=== PATIENT | male | born 1980 | race Caucasian/White ===

== ENCOUNTER 2017-12-22 16:31 | Emergency (ER) | payer SELFPAY ==
[~2017-12-22] VITALS: Ht 180.3 cm; Wt 100.0 kg
[2017-12-22 16:35] VITALS: Ht 180.3 cm; Wt 100.0 kg
[2017-12-22] MEDS ORDERED: PRINIVIL20 MG PO (16:40)
[2017-12-22] MEDS ORDERED: MECLIZINE HCL25 MG PO (16:40)
[2017-12-22] MEDS ORDERED: MEDROL DOSE PACK4 MG PO (17:42)
[2017-12-22] MEDS ORDERED: AMOXICILLIN500 M1 PO (17:42)
[2017-12-22 19:02] VITALS: BP 161/111
== END 2017-12-22 18:35 | disposition home or self-care (01) ==
LOC: D.ER 16:31
DX: H66.91 Otitis media, unspecified, right ear (principal); R11.0 Nausea; I10 Essential (primary) hypertension

== ENCOUNTER 2019-01-19 20:02 | Inpatient (IN) | payer SELFPAY ==
[~2019-01-19] VITALS: Ht 180.3 cm; Wt 78.0 kg
[~2019-01-19 20:02] MED LIST: AMOXICILLIN500 M1 PO; MECLIZINE HCL25 MG PO; MEDROL DOSE PACK4 MG PO; PRINIVIL20 MG PO
[2019-01-19 20:32] LABS: BASOPHILS 0.2 % (0-2); EOSINOPHILS 0.8 % (0-7); HEMATOCRIT 47.8 % (42.0-54.0); HEMOGLOBIN 16.9 g/dL (13.5-17.5); IMMATURE GRANULOCYTES 0.2 % (0-5); LYMPHOCYTES 25.1 % (15-50); MCH 31.9 pg (26.0-34.0); MCHC 35.4 g/dL (31.0-37.0); MCV 90.4 fL (80.0-100.0); MONOCYTES 5.5 % (2-11); NEUTROPHILS 68.2 % (40-80); PLATELET COUNT 227 10x3/uL (130-400); RBC 5.29 10x6/uL (4.20-6.10); WBC 13.3 10x3/uL (4.8-10.8)
[2019-01-19 20:52] LABS: ALBUMIN 4.5 g/dL (3.4-5.0); ALKALINE PHOSPHATASE 98 U/L (46-116); ALT (SGPT) 26 U/L (10-68); CALC OSMOLALITY 287 mosm/kg (275-300); CALCIUM 9.7 mg/dL (8.5-10.1); CARBON DIOXIDE 27.4 mmol/L (21.0-32.0); CHLORIDE - SERUM 107 mmol/L (98-107); CREATININE - SERUM 1.3 mg/dL (0.6-1.3); GLUCOSE 109 mg/dL (74-106); POTASSIUM - SERUM 4.4 mmol/L (3.5-5.1); PROTEIN - SERUM 8.8 g/dL (6.4-8.2); SODIUM 144 mmol/L (136-145); UREA NITROGEN 13 mg/dL (7-18); eGFR NON AFRICAN AMERICAN 65 mL/min (90-120)
[2019-01-19 20:56] LABS: AMYLASE - SERUM 49 U/L (25-115); LIPASE 83 U/L (73-393); TROPONIN-I < 0.017 ng/mL (0.000-0.060)
[2019-01-19 21:18] LABS: APPEARANCE CLEAR (CLEAR); COLOR YELLOW (YELLOW); GLUCOSE NEGATIVE (NEGATIVE); NITRITE NEGATIVE (NEGATIVE); PROTEIN TRACE mg/dL (NEGATIVE); SPECIFIC GRAVITY 1.015 (1.005-1.020)
[2019-01-19 21:19] LABS: BILIRUBIN NEGATIVE (NEGATIVE); KETONE NEGATIVE (NEGATIVE); UROBILINOGEN NORMAL (NORMAL)
--- NOTE | 2019-01-19 21:49 | NUR ---
PT SIPPING CONTRAST. NO N/V NOTED.
--- NOTE | 2019-01-19 22:31 | NUR ---
BACK FROM CT.
[2019-01-19 23:38] VITALS: BP 156/85
--- NOTE | 2019-01-19 23:50 | NUR ---
RECEIVED PT TO FLOOR FROM ER VIA WHEELCHAIR. PT SPEAKS FRENCH, LIMITED BHUTANESE. PT HAD ZOFRAN IN ER, NO NAUSEA SINCE THEN. HISTORY AND MEDS REVIEWED. IV FLUIDS INFUSING. PT REFUSED TELEMETRY. NO OTHER NEEDS. WILL REASSESS AND CONTINUE TO MONITOR. CALL LIGHT IN REACH.
[2019-01-20 01:36] VITALS: BP 147/94; BMI 24.0
[2019-01-20 05:01] VITALS: BP 118/75
[2019-01-20 06:08] LABS: BASOPHILS 0.3 % (0-2); HEMATOCRIT 40.2 % (42.0-54.0); IMMATURE GRANULOCYTES 0.1 % (0-5); LYMPHOCYTES 40.5 % (15-50); MCH 31.3 pg (26.0-34.0); MCHC 34.8 g/dL (31.0-37.0); MCV 89.9 fL (80.0-100.0); MEAN PLATELET VOLUME 11.1 fL (7.4-10.4); MONOCYTES 6.8 % (2-11); NEUTROPHILS 51.3 % (40-80); PLATELET COUNT 192 10x3/uL (130-400); RBC 4.47 10x6/uL (4.20-6.10); RDW 13.3 % (11.5-14.5)
[2019-01-20 06:19] LABS: WBC 7.9 10x3/uL (4.8-10.8)
[2019-01-20 06:43] LABS: CALC OSMOLALITY 281 mosm/kg (275-300); CALCIUM 8.1 mg/dL (8.5-10.1); CARBON DIOXIDE 23.9 mmol/L (21.0-32.0); CHLORIDE - SERUM 108 mmol/L (98-107); GLUCOSE 96 mg/dL (74-106); MAGNESIUM - SERUM 2.1 mg/dL (1.8-2.4); PHOSPHOROUS 3.8 mg/dL (2.5-4.9); SODIUM 142 mmol/L (136-145); UREA NITROGEN 10 mg/dL (7-18); eGFR NON AFRICAN AMERICAN 88 mL/min (90-120)
[2019-01-20 06:45] LABS: POTASSIUM - SERUM 3.6 mmol/L (3.5-5.1)
[2019-01-20 08:20] VITALS: BP 117/69
--- NOTE | 2019-01-20 09:51 | NUR ---
PT ALERT X 4. BREATH SOUNDS CLEAR BILAT. IV TO LEFT FOREARM, PATENT, DRESSING CDI. PT REPORTING PAIN OF 6/10, AGGRAVATED BY MOVEMENT, WILL MONITOR. BED LOW, CALL LIGHT IN REACH. NO OTHER NEEDS AT THIS TIME.
[2019-01-20 13:25] VITALS: BP 137/73
[2019-01-20 16:39] VITALS: BP 147/97
--- NOTE | 2019-01-20 18:54 | NUR ---
NG TUBE DROPPED. XRAY TAKEN TO VERIFY PLACEMENT. PT UNTAPED TUBE, TUBE STARTED COMING OUT. PT REFUSED TO ALLOW READVANCEMENT. DR. HARRIS NOTIFIED.
[2019-01-20 20:00] VITALS: BP 161/87
[2019-01-21] VITALS: BP 130/81
[2019-01-21 04:00] VITALS: BP 140/86
[2019-01-21 04:45] LABS: BASOPHILS 0.3 % (0-2); EOSINOPHILS 3.2 % (0-7); HEMATOCRIT 40.3 % (42.0-54.0); HEMOGLOBIN 13.7 g/dL (13.5-17.5); LYMPHOCYTES 49.5 % (15-50); MCV 91.2 fL (80.0-100.0); MEAN PLATELET VOLUME 10.8 fL (7.4-10.4); MONOCYTES 6.2 % (2-11); NEUTROPHILS 40.8 % (40-80); PLATELET COUNT 171 10x3/uL (130-400); RBC 4.42 10x6/uL (4.20-6.10); WBC 6.8 10x3/uL (4.8-10.8)
[2019-01-21 05:01] LABS: ANION GAP 10.4 mmol/L (8-16); CALCIUM 8.2 mg/dL (8.5-10.1); CARBON DIOXIDE 27.3 mmol/L (21.0-32.0); CREATININE - SERUM 1.2 mg/dL (0.6-1.3); POTASSIUM - SERUM 3.7 mmol/L (3.5-5.1)
--- NOTE | 2019-01-21 05:30 | NUR ---
NO NAUSEA THIS SHIFT. PT AMBULATED AROUND UNIT EARLIER IN SHIFT. PT HAD SOFT MEDIUM BOWEL MOVEMENT. ABDOMEN SOFT WITH ACTIVE BOWEL SOUNDS X4. PT STATES HE IS HUNGRY.
[2019-01-21 08:49] VITALS: BP 155/92
--- NOTE | 2019-01-21 10:50 | NUR ---
PATIENT UP WALKING. NO NEEDS AT THIS TIME. NO CO OF PAIN OR NAUSEA. WCTM
[2019-01-21 12:44] VITALS: BP 156/90
[2019-01-21 14:02] VITALS: Ht 180.3 cm; Wt 78.0 kg
--- NOTE | 2019-01-21 14:02 | NUR ---
PATIENT IV BEEPING. NEEDS ANOTHER IV BAG. SAYS HE IS FINE. CL IN REACH. NO FURTHER NEEDS AT THIS TIME.
[2019-01-21 17:55] VITALS: BP 110/62
[2019-01-21 20:00] VITALS: BP 152/95
--- NOTE | 2019-01-21 20:00 | NUR ---
ASSESSMENT PER FLOWSHEET. DENIES NEEDS ALERT/ORIENTED X4 UP AD KIKI. IV PATENT LT FOREARM WITH NS AT 50CC'S/HR SITE CLEAR.
--- NOTE | 2019-01-21 22:00 | NUR ---
MEDS GIVEN PER MAR. DENIES NEEDS.
[2019-01-22] VITALS: BP 112/64
--- NOTE | 2019-01-22 | NUR ---
EYES CLOSED RESPIATIONS WITH EASE AND UNLABORED.
--- NOTE | 2019-01-22 04:38 | NUR ---
RESTING QUIETLY DENIES NEEDS.
[2019-01-22 06:09] LABS: BASOPHILS 0.3 % (0-2); EOSINOPHILS 3.8 % (0-7); HEMATOCRIT 41.5 % (42.0-54.0); HEMOGLOBIN 14.3 g/dL (13.5-17.5); IMMATURE GRANULOCYTES 0.1 % (0-5); LYMPHOCYTES 40.8 % (15-50); MCHC 34.5 g/dL (31.0-37.0); MONOCYTES 7.7 % (2-11); NEUTROPHILS 47.3 % (40-80); PLATELET COUNT 197 10x3/uL (130-400); RBC 4.61 10x6/uL (4.20-6.10); RDW 12.9 % (11.5-14.5); WBC 6.9 10x3/uL (4.8-10.8)
[2019-01-22 06:24] LABS: CALC OSMOLALITY 279 mosm/kg (275-300); CALCIUM 8.8 mg/dL (8.5-10.1); CARBON DIOXIDE 29.1 mmol/L (21.0-32.0); CHLORIDE - SERUM 107 mmol/L (98-107); CREATININE - SERUM 1.1 mg/dL (0.6-1.3); GLUCOSE 89 mg/dL (74-106); POTASSIUM - SERUM 3.9 mmol/L (3.5-5.1); SODIUM 142 mmol/L (136-145); UREA NITROGEN 8 mg/dL (7-18); eGFR NON AFRICAN AMERICAN 79 mL/min (90-120)
[2019-01-22 09:38] VITALS: BP 111/47
[2019-01-22 12:11] VITALS: BP 145/97
--- NOTE | 2019-01-22 12:21 | NUR ---
PATIENT SITTING ON BED. WAITING ON DISCHARGE PAPERWORK CL IN REACH NO NEEDS AT THIS TIME.
--- NOTE | 2019-01-22 14:19 | NUR ---
IV THERAPY REMOVED FROM PATIENTS LEFT FOREARM. DISCHARGE INSTRUCTIONS GIVEN AND PATIENT VERBALIZED UNDERSTANDING. REFUSED WHEELCHAIR OUT. INSTRUCTIONS GIVEN TO ER WHERE HE LEFT HIS CAR
== END 2019-01-22 14:21 | disposition home or self-care (01) | DRG 390 ==
LOC: D.ER 20:02 → D.MS 23:06 → OBSVTIME 23:06 → D.MS 23:06 → D.SDCHOLD 01-21 11:52 → D.MS 01-21 11:52
PROVIDERS: Family Medicine; ADMIT Internal Medicine Nephrology; ATTEND Internal Medicine Nephrology
DX: K56.609 Unspecified intestinal obstruction, unspecified as to partial versus complete obstruction (principal); I10 Essential (primary) hypertension; F32.9 Major depressive disorder, single episode, unspecified

== ENCOUNTER 2020-01-03 21:23 | Inpatient (IN) | payer SELFPAY ==
[~2020-01-03] VITALS: Ht 172.7 cm; Wt 78.0 kg
[2020-01-03 22:33] LABS: BASOPHILS 0 % (0-2); EOSINOPHILS 0.3 % (0-7); HEMATOCRIT 45.1 % (42.0-54.0); HEMOGLOBIN 15.3 g/dL (13.5-17.5); IMMATURE GRANULOCYTES 0.3 % (0-5); LYMPHOCYTES 29.4 % (15-50); MCH 31.6 pg (26.0-34.0); MCHC 33.9 g/dL (31.0-37.0); MCV 93.2 fL (80.0-100.0); MEAN PLATELET VOLUME 11.6 fL (7.4-10.4); MONOCYTES 5.6 % (2-11); NEUTROPHILS 64.4 % (40-80); RBC 4.84 10x6/uL (4.20-6.10); RDW 12.7 % (11.5-14.5); WBC 3.6 10x3/uL (4.8-10.8)
[2020-01-03 22:35] LABS: PLATELET COUNT 138 10x3/uL (130-400)
[2020-01-03 22:48] LABS: ANION GAP 13.3 mmol/L (8-16); CALCIUM 8.6 mg/dL (8.5-10.1); CARBON DIOXIDE 24.4 mmol/L (21.0-32.0); CREATININE - SERUM 1.2 mg/dL (0.6-1.3); POTASSIUM - SERUM 3.7 mmol/L (3.5-5.1)
[2020-01-03 22:51] LABS: ALBUMIN 3.7 g/dL (3.4-5.0); BILIRUBIN - TOTAL 0.27 mg/dL (0.2-1.3); PROTEIN - SERUM 7.7 g/dL (6.4-8.2)
--- NOTE | 2020-01-03 23:13 | NUR ---
PT GIVEN URINAL AND HEAD OF BED ADJUSTED TO LEVEL OF COMFORT. PT DENIES ANY FURTHER NEEDS AT THIS TIME. CALL LIGHT WITHIN REACH, WILL CONTINUE TO MONITOR.
--- NOTE | 2020-01-04 00:28 | NUR ---
REPORT TO [facility] ROOM STILL DIRTY AT THIS TIME. WILL CALL WHEN CLEAN.
[2020-01-04 02:37] VITALS: BP 161/98
[2020-01-04 04:40] VITALS: BP 161/98; BMI 26.2
[2020-01-04 05:53] LABS: HEMATOCRIT 46.3 % (42.0-54.0); HEMOGLOBIN 15.5 g/dL (13.5-17.5); MCH 30.9 pg (26.0-34.0); MCHC 33.5 g/dL (31.0-37.0); MCV 92.2 fL (80.0-100.0); MEAN PLATELET VOLUME 11.5 fL (7.4-10.4); PLATELET COUNT 149 10x3/uL (130-400); RBC 5.02 10x6/uL (4.20-6.10); RDW 12.8 % (11.5-14.5)
[2020-01-04] MEDS ORDERED: PREDNISONE10 MG PO (05:53)
[2020-01-04] MEDS ORDERED: CLARITHROMYCIN500 M1 PO (05:54)
[2020-01-04 05:58] LABS: WBC 2.4 10x3/uL (4.8-10.8)
[2020-01-04 06:19] LABS: EOSINOPHILS 1 % (0-7); LYMPHOCYTES 26 % (15-50); MONOCYTES 4 % (2-11); NEUTROPHILS 69 % (40-80)
[2020-01-04 06:20] LABS: PLATELET ESTIMATE NORMAL
[2020-01-04 06:32] LABS: CALC OSMOLALITY 285 mosm/kg (275-300); CALCIUM 8.9 mg/dL (8.5-10.1); CARBON DIOXIDE 23.1 mmol/L (21.0-32.0); CHLORIDE - SERUM 108 mmol/L (98-107); CREATININE - SERUM 0.9 mg/dL (0.6-1.3); GLUCOSE 153 mg/dL (74-106); MAGNESIUM - SERUM 2.3 mg/dL (1.8-2.4); PHOSPHOROUS 2.5 mg/dL (2.5-4.9); SODIUM 142 mmol/L (136-145); UREA NITROGEN 12 mg/dL (7-18); eGFR NON AFRICAN AMERICAN > 90 mL/min (90-120)
--- NOTE | 2020-01-04 07:00 | NUR ---
RECEIVED REPORT. ASSUMED CARE OF PATIENT. PATIENT IN ISOLATION FOR PUI-COVID 19.
[2020-01-04 07:30] VITALS: BP 152/97
[2020-01-04 12:00] VITALS: BP 155/93
[2020-01-04 12:26] VITALS: Ht 172.7 cm; Wt 78.0 kg
--- NOTE | 2020-01-04 15:14 | NUR ---
PT MADE AWARE OF HIS POSITIVE COVID RESULTS.
--- NOTE | 2020-01-04 17:38 | NUR ---
HAVE TRIED TO COLLECT UA MULITPLE TIMES TODAY BUT PATIENT FORGETS TO URINATE IN THE URINAL. URINAL PLACED WHERE PATIENT COULD NOT FORGET THE NEXT TIME HE HAS TO URINATE. PATIENT DENIES ANY NEEDS AT THIS TIME. NO DISTRESS.
--- NOTE | 2020-01-04 19:30 | NUR ---
RECEIVED REPORT, WILL ASSUME CARE OF PT, DENIES ANY NEEDS AT THIS TIME, COLLECTED UA, TAKEN TO LAB, HAT DESIGNER ASSISTING PT TO SHOWER, WILL CONTINUE PLAN OF CARE
[2020-01-04 20:10] VITALS: BP 168/93
[2020-01-04 20:14] LABS: BILIRUBIN NEGATIVE (NEGATIVE); GLUCOSE 100 mg/dL (NEGATIVE); KETONE NEGATIVE (NEGATIVE); NITRITE NEGATIVE (NEGATIVE); UROBILINOGEN NORMAL (NORMAL)
[2020-01-05 04:54] VITALS: BP 137/94
[2020-01-05 06:29] LABS: BASOPHILS 0 % (0-2); EOSINOPHILS 0 % (0-7); HEMATOCRIT 44.6 % (42.0-54.0); HEMOGLOBIN 14.9 g/dL (13.5-17.5); IMMATURE GRANULOCYTES 0.2 % (0-5); LYMPHOCYTES 22.8 % (15-50); MCH 30.9 pg (26.0-34.0); MCHC 33.4 g/dL (31.0-37.0); MCV 92.5 fL (80.0-100.0); MEAN PLATELET VOLUME 11.3 fL (7.4-10.4); MONOCYTES 9.8 % (2-11); NEUTROPHILS 67.2 % (40-80); PLATELET COUNT 149 10x3/uL (130-400); RBC 4.82 10x6/uL (4.20-6.10); RDW 13.1 % (11.5-14.5)
[2020-01-05 06:40] LABS: WBC 6.1 10x3/uL (4.8-10.8)
[2020-01-05 06:46] LABS: CALC OSMOLALITY 292 mosm/kg (275-300); CALCIUM 8.3 mg/dL (8.5-10.1); CARBON DIOXIDE 24.2 mmol/L (21.0-32.0); CHLORIDE - SERUM 111 mmol/L (98-107); GLUCOSE 133 mg/dL (74-106); MAGNESIUM - SERUM 2.3 mg/dL (1.8-2.4); PHOSPHOROUS 3.1 mg/dL (2.5-4.9); SODIUM 146 mmol/L (136-145); UREA NITROGEN 12 mg/dL (7-18); eGFR NON AFRICAN AMERICAN 88 mL/min (90-120)
--- NOTE | 2020-01-05 07:00 | NUR ---
RECEIVED REPORT. ASSUMED CARE OF PATIENT. PATIENT REMAINS IN ISOLATION FOR POSITIVE COVID 19.
[2020-01-05 09:54] VITALS: BP 149/108
--- NOTE | 2020-01-05 10:00 | NUR ---
PATIENT SITTING TO SIDE OF BED. NO DISTRESS. CALL LIGHT WITHIN REACH.
[2020-01-05] MEDS ORDERED: OMNICEF300 MG PO (10:47)
[2020-01-05] MEDS ORDERED: AZITHROMYCIN500 MG PO (10:47)
[2020-01-05] MEDS ORDERED: PEPCID AC20 MG PO (11:11)
[2020-01-05] MEDS ORDERED: DECADRON4 MG PO (11:11)
[2020-01-05] MEDS ORDERED: VENTOLIN HFA [SP8 GM INH (11:24)
--- NOTE | 2020-01-05 12:30 | NUR ---
CASE MANAGEMENT PROVIDED [facility] PRESCRIPTION CARD TO THIS PEDIATRIC MEDICAL ASSISTANT TO PROVIDE TO PATIENT UPON DISCHARGE.
--- NOTE | 2020-01-05 14:50 | NUR ---
PATIENT LEFT UNIT AMBULATORY AT THIS TIME. PATIENT DISCHARGED TO HOME. PATIENT IN STABLE CONDITION UPON LEAVING UNIT. 1435 - DISCHARGE INSTRUCTIONS PROVIDED TO PATIENT. INSTRUCTIONS PROVIDED X 2 AND ALL QUESTIONS ANSWERED. 1430 - 20 GAUGE IV REMOVED FROM LEFT FOREARM. CATHETER TIP INTACT. NO BLEEDING FROM SITE. 2X2 GAUZE APPLIED AND SECURED WITH BANDAID. 20 GAUGE IV REMOVED FROM RIGHT FOREARM. NO BLEEDING FROM SITE. 2X2 GAUZE APPLIED AND SECURED WITH BANDAID. CATHETER TIP INTACT. PATIENT TOLERATED IV REMOVAL FROM EACH ARM WELL. NO DISTRESS.
--- NOTE | 2020-01-05 17:39 | MORECARE ---
CASE MANAGEMENT DISCHARGE SUMMARY PATIENT: KOFI MONTANO UNIT: [id number] ADM DATE: 01/03/20 AGE: 40 : [birth year] SEX: M ROOM/BED: D.2138 AUTHOR: KRIS FLORES PHYSICIAN: REFERRING PHYSICIAN: ADILIA GEE MD DATE OF SERVICE: 01/05/20 Discharge Plan Patient Name: KOFI MONTANO [facility] [facility] 12/11/1979 Planned Disposition: Anticipated Discharge Date: Discharge Date: 01/05/2020 Expected LOS: Initial Reviewer: [email or web address] Initial Review Date: 01/04/2020 Generated: 01/05/20 6:38 pm Patient Name: KOFI MONTANO Page [phone] at 1737 All edits/amendments must be made on the electronic document DICTATION DATE: 01/05/201737 SHIRT LINE OPERATOR: PANCHO 01/05/201737 RPT#: [id number] DC DATE:01/05/20 STATUS: DIS IN [facility] [address] [place] [address] END OF REPORT
--- NOTE | 2020-01-05 17:45 | MORECARE ---
CASE MANAGEMENT DISCHARGE SUMMARY PATIENT: KOFI MONTANOIRO UNIT: [id number] ADM DATE: 01/03/20 AGE: 40 : [birth year] SEX: M ROOM/BED: D.2138 AUTHOR: KRIS FLORES PHYSICIAN: REFERRING PHYSICIAN: ADILIA GEE MD DATE OF SERVICE: 01/05/20 Discharge Plan Patient Name: KOFI MONTANO Facility: [facility]:[place] : 12/11/1979 Planned Disposition: Anticipated Discharge Date: Discharge Date: 01/05/2020 Expected LOS: Initial Reviewer: [email or web address] Initial Review Date: 01/04/2020 Generated: 01/05/20 6:45 pm Comments DCP- Discharge Planning Updated by [email or web address]: Spring Patel on 01/05/20 4:[address] CM attempted to call into patient room to discuss discharge planning but didn't get an answer. CM looked up patient's discharge medications and compared cost on [facility]. CM printed patient coupons for medications and [facility] card. CM requested that nurse give to patient and and to let CM know if he doesn't have means to get medications. Patient is in isolation so CM is unable to go in and see patient d/t PPE shortage. CM will continue to follow and assist as needed with discharge planning / needs. Last DP export: 01/05/20 4:39 pm Patient Name: KOFI MONTANO Page [phone] at 1744 All edits/amendments must be made on the electronic document DICTATION DATE: 01/05/201744 LOGGING SPECIALIST: PANCHO 01/05/201744 RPT#: [id number] DC DATE:01/05/20 STATUS: DIS IN [facility] [address] [place] [address] END OF REPORT
== END 2020-01-05 14:59 | disposition home or self-care (01) | DRG 177 ==
LOC: D.ER 21:23 → D.M2 23:34
PROVIDERS: Family Medicine; ADMIT Emergency Medicine; ATTEND Emergency Medicine
DX: U07.1 COVID-19 (principal); J12.89 Other viral pneumonia; E87.0 Hyperosmolality and hypernatremia; I10 Essential (primary) hypertension